=== PATIENT | female | born 1990 | race Caucasian/White ===

== ENCOUNTER 2017-06-08 11:45 | Emergency (ER) | payer MEDICAID ==
[~2017-06-08] VITALS: Ht 170.2 cm; Wt 63.5 kg
[2017-06-08 11:50] VITALS: BP_SYST 129
[2017-06-08 13:07] VITALS: BP_SYST 125
== END 2017-06-08 13:07 | disposition home or self-care (01) ==
LOC: SED 11:45
DX: J40 Bronchitis, not specified as acute or chronic (principal)
CPT/HCPCS: 71045; 99283